=== PATIENT | female | born 1955 | race Two or more races ===

== ENCOUNTER 2023-08-09 18:26 | Emergency (ER) | payer OTHER ==
[~2023-08-09] VITALS: Ht 160 cm; Wt 74.8 kg
[2023-08-09] MEDS ORDERED: ACETAMINOPHEN 500 MG GEL..CAP PO STA (19:27)
[2023-08-09] MEDS ORDERED: KETOROLAC TROMETHAMINE 60 MG VIAL IM STA (19:27)
[2023-08-09 20:26] LABS: HEMATOCRIT 41.8 % (36.0-45.00); MEAN CELL VOLUME 85.4 fL (80.00-100.00); MEAN CORPUSCULAR HEMOGLOBIN 28.6 pg (27.00-32.0); MEAN CORPUSCULAR HGB CONC 33.5 g/dl (32.0-36.0); PLATELET COUNT 289 K/uL (150-450); RED BLOOD COUNT 4.89 M/uL (4.00-6.00); RED CELL DISTRIBUTION WIDTH 14.1 % (11.5-14.5)
== END 2023-08-09 21:07 | disposition home or self-care (01) ==
LOC: ER 18:26
DX: U07.1 COVID-19 (principal)
CPT/HCPCS: 36415; 96372; 99282; J1885

== ENCOUNTER 2023-11-24 07:25 | Outpatient (CLI) | payer OTHER ==
[~2023-11-24 07:25] MED LIST: NABUMETONE500 MG PO
== END 2023-11-24 07:26 | disposition home or self-care (01) ==
LOC: NUCLEAR 07:25
PROVIDERS: ATTEND Internal Medicine Rheumatology
DX: M05.79 Rheumatoid arthritis with rheumatoid factor of multiple sites without organ or systems involvement (principal); M87.059 Idiopathic aseptic necrosis of unspecified femur; M05.29 Rheumatoid vasculitis with rheumatoid arthritis of multiple sites; M06.9 Rheumatoid arthritis, unspecified
CPT/HCPCS: 78315; A9503

== ENCOUNTER 2023-12-01 13:28 | Outpatient (CLI) | payer OTHER | END 2023-12-01 14:28 | disposition home or self-care (01) | LOC: NUCLEAR 13:28 | PROVIDERS: ATTEND Internal Medicine Rheumatology | DX: M81.0 Age-related osteoporosis without current pathological fracture (principal); M81.8 Other osteoporosis without current pathological fracture ==

== ENCOUNTER 2023-12-24 15:49 | Emergency (ER) | payer OTHER ==
[~2023-12-24] VITALS: Ht 160 cm; Wt 74.4 kg
[2023-12-24] MEDS ORDERED: ROSUVASTATIN CA10 MG PO (15:53)
[2023-12-24] MEDS ORDERED: TRIJARDY XR 121 EACH PO (15:53)
== END 2023-12-24 16:37 | disposition home or self-care (01) ==
LOC: ER 15:50
DX: S05.00XA Injury of conjunctiva and corneal abrasion without foreign body, unspecified eye, initial encounter (principal); X58.XXXA Exposure to other specified factors, initial encounter; Y93.89 Activity, other specified; Y92.89 Other specified places as the place of occurrence of the external cause; Y99.8 Other external cause status

== ENCOUNTER 2024-02-15 02:35 | Emergency (ER) | payer OTHER ==
[~2024-02-15] VITALS: Ht 160 cm; Wt 74.4 kg
[~2024-02-15 02:35] MED LIST changes: +ROSUVASTATIN CA10 MG PO; +TRIJARDY XR 121 EACH PO
[2024-02-15] MEDS ORDERED: KETOROLAC TROMETHAMINE 60 MG VIAL IM STA (03:46)
[2024-02-15] MEDS ORDERED: KETO10TA2 PO (04:40)
== END 2024-02-15 04:51 ==
LOC: ER 02:37
DX: S29.8XXA Other specified injuries of thorax, initial encounter (principal); W19.XXXA Unspecified fall, initial encounter; Y93.89 Activity, other specified; Y92.89 Other specified places as the place of occurrence of the external cause; Y99.8 Other external cause status; E11.9 Type 2 diabetes mellitus without complications; Z79.84 Long term (current) use of oral hypoglycemic drugs
CPT/HCPCS: 71111; 96372; 99283; J1885

== ENCOUNTER 2024-10-16 09:31 | Outpatient (CLI) | payer OTHER ==
[~2024-10-16 09:31] MED LIST changes: +KETO10TA2 PO
== END 2024-10-16 09:34 | disposition home or self-care (01) ==
LOC: MAMO-SONO 09:31
PROVIDERS: ATTEND Internal Medicine
DX: N60.39 Fibrosclerosis of unspecified breast (principal); Z12.39 Encounter for other screening for malignant neoplasm of breast; Z12.31 Encounter for screening mammogram for malignant neoplasm of breast

== ENCOUNTER 2025-03-17 08:07 | Outpatient (CLI) | payer OTHER | END 2025-03-17 08:11 | disposition home or self-care (01) | LOC: MRI 08:07 | PROVIDERS: ATTEND Orthopaedic Surgery | DX: M75.121 Complete rotator cuff tear or rupture of right shoulder, not specified as traumatic (principal) | CPT/HCPCS: 73221 ==